=== PATIENT | female | born 1955 | race Native Hawaiian/Other Pacific Islander ===

== ENCOUNTER 2018-04-22 12:34 | Inpatient (IN) | payer OTHER ==
[~2018-04-22] VITALS: Ht 157.5 cm; Wt 68.7 kg
[2018-04-22 14:17] LABS: PLATELET COUNT 134 K/uL (152-353)
[2018-04-22 14:32] LABS: POTASSIUM 3.3 mmol/L (3.6-5.2)
[2018-04-22 16:14] LABS: PARTIAL THROMBOPLASTIN TIME 32.3 SECONDS (24.5-33.6)
[2018-04-22 18:33] VITALS: BP 121/86; TEMP 98.7; Ht 157.5 cm; Wt 68.7 kg
[2018-04-22] MEDS ORDERED: PANTOPRAZOLE 40MG TA PO (20:23)
[2018-04-22] MEDS ORDERED: LACTULOSE10 GM/15 M PO (20:24)
[2018-04-22] MEDS ORDERED: 904272561 PO (20:26)
[2018-04-22] MEDS ORDERED: HYDROCODONE/IBU1 TA1 PO (20:29)
[2018-04-22] MEDS ORDERED: KLOR-CON M2020 MEQ PO (20:31)
[2018-04-22] MEDS ORDERED: FUROSEMIDE40 MG PO (20:33)
[2018-04-22 20:38] VITALS: BP 112/73; TEMP 97.7
[2018-04-22] MEDS ORDERED: ZOFRAN8 MG PO (20:39)
[2018-04-22] MEDS ORDERED: OXYC10TA3 PO (20:40)
[2018-04-22] MEDS ORDERED: AMBIEN5 MG PO (20:43)
[2018-04-23] VITALS: BP 106/67; TEMP 98.8
[2018-04-23 04:17] VITALS: BP 108/67; TEMP 97.7
[2018-04-23 08:06] VITALS: BP 115/78; TEMP 97.7
[2018-04-23 12:14] VITALS: BP 133/81; TEMP 97.6
[2018-04-23 16:00] VITALS: BP 131/77; TEMP 97.8
== END 2018-04-23 18:15 | disposition home or self-care (01) | DRG 948 ==
LOC: MED/SURG 12:34
PROVIDERS: ADMIT Family Medicine
DX: R18.8 Other ascites (principal); N39.0 Urinary tract infection, site not specified; K56.699 Other intestinal obstruction unspecified as to partial versus complete obstruction; J90 Pleural effusion, not elsewhere classified; C20 Malignant neoplasm of rectum; C78.01 Secondary malignant neoplasm of right lung; E87.1 Hypo-osmolality and hyponatremia; E86.0 Dehydration; R11.2 Nausea with vomiting, unspecified; E87.6 Hypokalemia; R13.19 Other dysphagia
CPT/HCPCS: 36591; 80053; 81000; 82140; 83735; 84100; 84550; 85027; 85610; 85730; 87088; 96365; 96366; 96367; 96374; 96375; J1644; J1956; J2270; J2405; J2550; J3490